=== PATIENT | male | born 1950 | race African-American/Black ===

== ENCOUNTER 2025-02-12 17:48 | Inpatient (IN) | payer MEDICARE, MEDICAID ==
[~2025-02-12] VITALS: Ht 185.4 cm; Wt 72.5 kg
[2025-02-12] MEDS ORDERED: ZOLPIDEM TARTRATE 10 MG TABLET PO PRN (22:45)
[2025-02-12 23:25] LABS: PLATELET COUNT (AUTO) 184 K/uL (150-450); RED BLOOD CELL COUNT(AUTO) 3.74 MIL/uL (4.50-5.90); RED CELL DISTRIBUTION WIDTH 15.2 % (11.5-14.5); WHITE BLOOD COUNT (AUTO) 6.3 K/uL (4.5-11.0)
[2025-02-12 23:30] LABS: COVID AG,FIA SOURCE NASAL SWAB
[2025-02-12 23:34] LABS: SARS-COV2 (COVID) ANTIGEN,FIA Negative (Negative)
[2025-02-12 23:35] LABS: CALCIUM, TOTAL 8.5 mg/dL (8.8-10.5); CREATININE 0.77 mg/dL (0.60-1.30); GLOMERULAR FILTR. RATE CALC > 60 mL/min (>60); GLUCOSE,RANDOM 84 mg/dL (70-110); SODIUM SERUM 141 mmol/L (136-145); UREA NITROGEN, BLOOD 14 mg/dL (7-18)
[2025-02-13] MEDS ORDERED: LORazepam 2 MG/ML VIAL IM ONE (02:15)
[2025-02-13] MEDS ORDERED: THIA100T80 PO (06:07)
[2025-02-13] MEDS ORDERED: CYAN500T56 PO (06:07)
[2025-02-13] MEDS ORDERED: TAMS0.4C94 PO (06:07)
[2025-02-13] MEDS ORDERED: MULT-1366 PO (06:07)
[2025-02-13] MEDS ORDERED: NIFE-46 PO (06:07)
[2025-02-13] MEDS ORDERED: FOLI-130 PO (06:07)
[2025-02-13] MEDS ORDERED: FERR325T27 PO (06:07)
[2025-02-13] MEDS ORDERED: DOCU-412 PO (06:07)
[2025-02-13] MEDS ORDERED: DIVA-111 PO (06:07)
[2025-02-13] MEDS ORDERED: HYDR25TA2 PO (06:07)
[2025-02-13] MEDS ORDERED: HYDR50TA36 PO (06:07)
[2025-02-13] MEDS ORDERED: METO50 PO (06:07)
[2025-02-13] MEDS ORDERED: ASPI-1450 PO (06:07)
[2025-02-13] MEDS ORDERED: ATOR10TA PO (06:07)
[2025-02-13] MEDS: NIFEdipine 60 MG ER TABLET PO ONE (07:07)
[2025-02-13] MEDS: METOPROLOL TARTRATE 50 MG TABLET PO ONE (07:07)
[2025-02-13 07:48] LABS: APPEARANCE,URINE CLEAR (CLEAR); GLUCOSE, URINE (UA) NEGATIVE (NEGATIVE); LEUKOCYTE ESTERASE ,URINE MODERATE (NEGATIVE); NITRATE,URINE NEGATIVE (NEGATIVE); OCCULT BLOOD,URINE NEGATIVE (NEGATIVE); PH,URINE DRUG SCREEN 6.0 (5.0-8.0); SPECIFIC GRAVITIY, URINE 1.021 (1.003-1.030)
[2025-02-13 07:54] LABS: ALCOHOL, URINE DRUG SCREEN NEGATIVE (NEGATIVE); AMPHET/METH SCREEN,URINE NEGATIVE (NEGATIVE); BARBITURATE SCREEN, URINE NEGATIVE (NEGATIVE); CANNABINOID SCREEN,URINE NEGATIVE (NEGATIVE); COCAINE SCREEN,URINE NEGATIVE (NEGATIVE); METHADONE SCREEN, URINE NEGATIVE (NEGATIVE)
[2025-02-13] MEDS: CIPROFLOXACIN HCL 250 MG TABLET PO ONE (08:43)
[2025-02-13] MEDS: CEPHALEXIN MONOHYDRATE 500 MG CAPSULE PO ONE ×2 (08:44→15:10)
[2025-02-13 17:50] VITALS: BP 179/101; PULSE 67; RESP 17; TEMP 98.2; O2SAT 97
[2025-02-13 18:50] VITALS: BP 179/101; PULSE 67; RESP 17; TEMP 98.2; O2SAT 97
[2025-02-13 18:58] VITALS: BP 179/101; PULSE 67; RESP 17; TEMP 98.2; O2SAT 97
[2025-02-13] MEDS ORDERED: DOCUSATE SODIUM 100 MG CAPSULE PO PRN (19:00)
[2025-02-13] MEDS: NIFEdipine 60 MG ER TABLET PO SCH (19:00)
[2025-02-13] MEDS ORDERED: MAG HYDROX/ALUMINUM HYD/SIMETH ES 30 ML SUSPENSION UDCUP PO PRN (19:00)
[2025-02-13] MEDS ORDERED: MAGNESIUM HYDROXIDE SUSPENSION 30 ML UDCUP PO PRN (19:00)
[2025-02-13] MEDS: METOPROLOL TARTRATE 50 MG TABLET PO SCH (19:00)
[2025-02-13] MEDS ORDERED: GuaiFENesin/D-METHORPHAN [SUGAR-FREE] 200-20MG/10 ML SYRUP UDCUP PO PRN (19:00)
[2025-02-13] MEDS ORDERED: ONDANSETRON 4 MG TABLET PO PRN (19:00)
[2025-02-13] MEDS ORDERED: LOPERAMIDE HCL 2 MG CAPSULE PO PRN (19:00)
[2025-02-13] MEDS ORDERED: ALBUTEROL SULFATE HFA 90 MCG/PUFF 8 GM INHALER IH PRN (19:00)
[2025-02-13] MEDS ORDERED: PETROLATUM,WHITE 28 GM JELLY TP PRN (19:00)
[2025-02-13] MEDS ORDERED: NICOTINE 14 MG/24 HOUR PATCH TD PRN (19:00)
[2025-02-13 20:41] VITALS: BP 148/98; PULSE 68; RESP 18; TEMP 98.6; O2SAT 98
[2025-02-13] MEDS: DOCUSATE SODIUM 250 MG CAPSULE PO SCH (20:41)
[2025-02-13] MEDS ORDERED: PNEUMOCOCCAL VACCINE POLYVALENT 0.5 ML SYRINGE [PPSV23] IM. ONE (21:30)
[2025-02-13] MEDS: ATORVASTATIN CALCIUM 10 MG TABLET PO SCH (23:08)
[2025-02-14] MEDS: FERROUS SULFATE 325 MG EC TABLET PO SCH (06:51)
[2025-02-14] MEDS: TAMSULOSIN HCL 0.4 MG CAPSULE PO SCH (08:22)
[2025-02-14] MEDS: FOLIC ACID 1 MG TABLET PO SCH (08:22)
[2025-02-14] MEDS: ASPIRIN 81 MG CHEWABLE TABLET PO SCH (08:22)
[2025-02-14] MEDS: MULTIVITAMINS WITH MINERALS, THERAPEUTIC TABLET PO SCH (08:23)
[2025-02-14] MEDS: CYANOCOBALAMIN 500 MCG TABLET PO SCH (08:23)
[2025-02-14] MEDS: CEPHALEXIN MONOHYDRATE 500 MG CAPSULE PO SCH (08:23)
[2025-02-14] MEDS: THIAMINE 100 MG TABLET PO SCH (08:23)
[2025-02-14 08:41] VITALS: BP 123/85; PULSE 73; RESP 18; TEMP 98.3; O2SAT 97
[2025-02-14 09:55] VITALS: BP 123/85; PULSE 73; RESP 18; TEMP 98.3; O2SAT 97
[2025-02-14] MEDS: IBUPROFEN 400 MG TABLET PO PRN (09:59)
[2025-02-14] MEDS: DIVALPROEX SODIUM 125 MG DR CAPSULE PO SCH (17:00)
[2025-02-14] MEDS ORDERED: DEXTROSE 50%-WATER 25 GM/50 ML SYRINGE IVP PRN (18:30)
[2025-02-14 22:34] VITALS: RESP 18
[2025-02-15 08:14] VITALS: BP 146/97; PULSE 69; RESP 16; TEMP 98.9; O2SAT 98
[2025-02-15 11:55] LABS: GLUCOMETER DEV NAME(LOC) 3E.C; GLUCOSE,POINT OF CARE 89 MG/DL (70-110)
[2025-02-15 17:50] VITALS: BP 136/78; PULSE 72; RESP 18
[2025-02-15 20:04] VITALS: RESP 18
[2025-02-15 20:35] VITALS: BP 130/80; PULSE 80; RESP 17; TEMP 97.9; O2SAT 97
[2025-02-15] MEDS: ACETAMINOPHEN 325 MG TABLET PO PRN (20:40)
[2025-02-15 21:40] VITALS: RESP 18
[2025-02-16 08:52] VITALS: BP 138/84; PULSE 80; RESP 19; TEMP 98.2; O2SAT 98
[2025-02-16 20:23] VITALS: RESP 18
[2025-02-17 10:45] VITALS: BP 157/91; PULSE 60; RESP 18; TEMP 98.8
[2025-02-17 11:45] VITALS: BP 137/94; PULSE 82; RESP 19; TEMP 98
[2025-02-17] MEDS: SULFAMETHOX/TRIMETH DS 800-160 MG/TABLET PO SCH (17:00)
[2025-02-17 17:06] VITALS: BP 137/94; PULSE 82
[2025-02-17] MEDS ORDERED: SULF1TAB42 PO (17:12)
[2025-02-17] MEDS: INSULIN LISPRO 100 UNITS/ML SQ PRN (17:22)
== END 2025-02-17 20:00 | DRG 885 ==
LOC: EMS 17:48 → 3EC 02-13 17:19 → EMS 02-13 17:20
PROVIDERS: ADMIT Psychiatry & Neurology Child & Adolescent Psychiatry; ATTEND Psychiatry & Neurology Child & Adolescent Psychiatry
PROC: GZ56ZZZ Individual Psychotherapy, Supportive (ICD-10-PCS; 2025-02-14)
PROC: GZ58ZZZ Individual Psychotherapy, Cognitive-Behavioral (ICD-10-PCS; 2025-02-14)
PROC: GZ52ZZZ Individual Psychotherapy, Cognitive (ICD-10-PCS; principal; 2025-02-17)
DX: F29 Unspecified psychosis not due to a substance or known physiological condition (principal); N39.0 Urinary tract infection, site not specified; I10 Essential (primary) hypertension; E11.9 Type 2 diabetes mellitus without complications; E78.5 Hyperlipidemia, unspecified; D64.9 Anemia, unspecified; F31.9 Bipolar disorder, unspecified; Z20.822 Contact with and (suspected) exposure to COVID-19
CPT/HCPCS: 80048; 80307; 81001; 82962; 85025; 87077; 87081; 87086; 87186; 99285; G0480